=== PATIENT | female | born 1935 | race Two or more races ===

== ENCOUNTER 2018-10-22 13:32 | Outpatient (CLI) | payer OTHER | END 2018-10-22 14:03 | disposition home or self-care (01) | LOC: RAD 501 13:32 | DX: M79.651 Pain in right thigh (principal); M79.604 Pain in right leg; M25.561 Pain in right knee; Z76.89 Persons encountering health services in other specified circumstances ==

== ENCOUNTER 2018-10-22 16:42 | Outpatient (CLI) | payer OTHER | END 2018-10-22 16:52 | disposition home or self-care (01) | LOC: LAB 16:42 | DX: D64.89 Other specified anemias (principal); E88.89 Other specified metabolic disorders; D68.8 Other specified coagulation defects; N39.0 Urinary tract infection, site not specified; Z22.322 Carrier or suspected carrier of Methicillin resistant Staphylococcus aureus; E55.9 Vitamin D deficiency, unspecified; M85.9 Disorder of bone density and structure, unspecified ==